=== PATIENT | male | born 1960 | race Caucasian/White ===

== ENCOUNTER 2022-09-05 08:55 | Emergency (ER) | payer OTHER ==
[~2022-09-05] VITALS: Ht 195.6 cm; Wt 141.5 kg
[2022-09-05 08:59] VITALS: BP 133/71
[2022-09-05] MEDS ORDERED: ACETAMINOPHEN 500 MG TABLET PO ONE (09:30)
[2022-09-05 09:43] LABS: APPEARANCE,URINE CLOUDY (CLEAR); BILIRUBIN,URINE NEGATIVE (NEGATIVE); COLOR,URINE YELLOW (YELLOW); GLUCOSE, URINE (UA) NEGATIVE (NEGATIVE); KETONES,URINE 10 mg/dL (NEGATIVE); LEUKOCYTE ESTERASE ,URINE 500 Leu/uL (NEGATIVE); NITRATE,URINE NEGATIVE (NEGATIVE); OCCULT BLOOD,URINE MODERATE (NEGATIVE); PH,URINE 6.5 (5.0-8.0); PROTEIN,URINE 100 mg/dL (NEGATIVE); UROBILINOGEN,URINE 0.2 mg/dL (0.2-1.0)
[2022-09-05] MEDS ORDERED: LEVOFLOXACIN 500 MG TABLET PO STA (10:00)
[2022-09-05] MEDS ORDERED: LEVO750T68 PO (10:04)
[2022-09-05 10:08] LABS: BACTERIA,URINE FEW /HPF (None Seen); MUCUS,URINE RARE LPF (None Seen); SQUAMOUS EPITHELIAL CELL,UR RARE /HPF (0-2); TRANSITIONAL EPI CELLS,URINE RARE /HPF (None Seen); WBC,URINE 51-100 /HPF (0-1)
== END 2022-09-05 10:20 | disposition home or self-care (01) ==
LOC: EDH 08:55
DX: N39.0 Urinary tract infection, site not specified (principal); I10 Essential (primary) hypertension; E78.00 Pure hypercholesterolemia, unspecified; Z20.822 Contact with and (suspected) exposure to COVID-19
CPT/HCPCS: 99283; 87635; 87088; 87804 ×2; 81001; C9803